=== PATIENT | male | born 1980 | race Asian ===

== ENCOUNTER → 2016-10-17 | Outpatient (REF) | LOC: WSOH 16:11 | DX: Z02.89 Encounter for other administrative examinations (principal) ==

== ENCOUNTER → 2016-11-11 | Outpatient (REF) | LOC: WSOH 13:58 | DX: Z02.89 Encounter for other administrative examinations (principal) ==

== ENCOUNTER → 2016-11-12 | Outpatient (REF) | LOC: WSOH 14:00 | DX: Z02.89 Encounter for other administrative examinations (principal) ==

== ENCOUNTER 2019-06-11 12:04 | Emergency (ER) | payer BC ==
[~2019-06-11] VITALS: Ht 175.3 cm; Wt 76.4 kg
[2019-06-11 12:09] VITALS: BP 125/80; TEMP 98.8
[2019-06-11] MEDS ORDERED: CRUTCHES MC (13:02)
[2019-06-11 13:42] VITALS: PULSE 80
== END 2019-06-11 13:42 | disposition home or self-care (01) ==
LOC: COL.ER 12:04
DX: S99.912A Unspecified injury of left ankle, initial encounter (principal); X50.1XXA Overexertion from prolonged static or awkward postures, initial encounter; Y92.838 Other recreation area as the place of occurrence of the external cause; Y93.68 Activity, volleyball (beach) (court)
CPT/HCPCS: Q4045